=== PATIENT | female | born 1980 ===

== ENCOUNTER 2019-04-20 05:45 | Day surgery (SDC) | payer OTHER ==
[~2019-04-20 05:45] MED LIST: LYRICA50 MG PO
== END 2019-04-20 12:45 | disposition home or self-care (01) ==
LOC: CIR.AMB 05:45 → ADM 08:15 → CIR.AMB 12:45
DX: Z30.2 Encounter for sterilization (principal)

== ENCOUNTER 2023-03-18 05:30 | Day surgery (SDC) | payer OTHER ==
[2023-03-15 10:09] LABS: URINE APPEARANCE Clear; URINE BILIRRUBIN Negative (NEGATIVE); URINE BLOOD Negative; URINE COLOR Yellow; URINE GLUCOSE Negative (NEGATIVE); URINE LEUKOCYTE Negative; URINE NITRATE Negative; URINE PROTEIN Negative (NEGATIVE); URINE UROBILINOGEN 0.2 E.U./dl
[2023-03-15 10:13] LABS: URINE BACTERIA 166.3 uL (0.0-1933); URINE EPITHELIAL CELLS 5.8 uL (0.0-38.8); URINE RBC 9.1 uL (0.0-20.8); URINE WBC 2.9 uL (0.0-23.2)
[2023-03-15 10:22] LABS: HEMATOCRIT 36.3 % (36.0-45.00); HEMOGLOBIN 12.5 g/dL (12.0-15.00); MEAN CELL VOLUME 90.3 fL (80.00-100.00); MEAN CORPUSCULAR HGB CONC 34.3 g/dl (32.0-36.0); PLATELET COUNT 398 K/uL (150-450); RED BLOOD COUNT 4.02 M/uL (4.00-6.00); RED CELL DISTRIBUTION WIDTH 14.2 % (11.5-14.5)
[2023-03-15 10:40] LABS: INR 1.04; PARTIAL THROMBOPLASTIN TIME 25.3 SECONDS (22.0-34.0); PROTHROMBIN TIME 10.9 SECONDS (9.0-11.5)
[2023-03-15 10:59] LABS: ALBUMIN 3.6 gm/dL (3.4-5.0); BILIRUBIN TOTAL 0.55 mg/dL (0.3-1.2); CREATININE SERUM 0.77 mg/dL (0.55-1.02); GFR 82.21; GLOBULINA 3.9 G/DL (2.4-3.5); POTASSIUM 4.12 mEq/L (3.5-5.1); TOTAL PROTEIN 7.5 gm/dL (6.4-8.2)
[~2023-03-18 05:30] MED LIST changes: +CYMBALTA20 MG PO; +VITAMIN D310 MCG/1 M PO
[2023-03-18] MEDS ORDERED: TRAM1TAB98 PO (08:52)
[2023-03-18] MEDS ORDERED: MORGIDOX100 MG PO (08:52)
== END 2023-03-18 15:00 | disposition home or self-care (01) ==
LOC: CIR.AMB 05:30
PROVIDERS: ATTEND Obstetrics & Gynecology
DX: N92.1 Excessive and frequent menstruation with irregular cycle (principal); D25.0 Submucous leiomyoma of uterus; N87.9 Dysplasia of cervix uteri, unspecified; N72 Inflammatory disease of cervix uteri; Z88.6 Allergy status to analgesic agent; Z91.013 Allergy to seafood; Z20.822 Contact with and (suspected) exposure to COVID-19